=== PATIENT | female | born 1935 | race Caucasian/White ===

== ENCOUNTER 2019-04-19 10:42 | Inpatient (IN) | payer MEDICARE ==
--- NOTE | 2019-04-19 11:01 | CT ---
Exam: Head CT without contrast HISTORY: Level 2 stroke. Dysphagia and achalasia since last night. Confusion starting this morning. COMPARISON: none FINDINGS: Hemorrhage: No intraparenchymal hemorrhage or extra-axial hematoma. Brain parenchyma: Malacic changes involving the medial left occipital lobe. Otherwise, cortical branch- white matter differentiation is preserved. No mass effect or midline shift. Basilar cisterns are patent. Ventricular system: Ventricles and sulci are patent and symmetric. Calvarium: Intact. Sinuses and mastoid air cells: Adequate aeration. IMPRESSION: No acute intracranial process. Results study discussed with Dr. Saul 04/19/2019 at 10:58 AM Code CR
[2019-04-19 11:33] LABS: #Eosinphils 0.2 thou/uL (0.0-0.7); #Lymphocytes 1.2 thou/uL (1.20-3.40); #Monocytes 0.9 thou/uL (0.11-0.59); #Neutrophils 8.7 thou/uL (1.40-6.50); %Basophils 0.3 % (0.0-1.0); %Eosinophils 1.8 % (0.0-10.0); %Lymphocytes 10.4 % (21.0-51.0); %Monocytes 8.1 % (0.0-10.0); %Neutrophils 79.4 % (42.0-75.0); Hemoglobin 13.4 g/dL (12.0-16.0); Mean Corpuscular Hemoglobin 30.3 pg (27.0-31.0); Mean Corpuscular Volume 97.7 fL (78.0-98.0); Mean Platelet Volume 8.4 fL (7.4-10.4); Platelet Count 228 thou/uL (130-400); RBC Distribution Width 15.6 % (11.5-14.5); Red Blood Cell (RBC) Count 4.42 mill/uL (4.20-5.40)
[2019-04-19] MEDS ORDERED: Aspirin Chewable 81 MG TAB ONE ×2 (11:53→11:56)
[2019-04-19 12:01] LABS: Bilirubin Negative (Negative); Blood, Urine Negative (Negative); Clarity Clear (Clear); Glucose, Urine (Dipstick) Normal (Negative); Leukocyte Negative Leu/uL (Negative); Nitrite Negative (Negative); Protein, Urine (Dipstick) Negative (Neg-Trace); Urobilinogen Normal mg/dL (Less than 2)
[2019-04-19 12:09] LABS: ALT (SGPT) 16 U/L (8-55); AST (SGOT) 16 U/L (5-34); Albumin 4.1 g/dL (3.4-4.8); Alkaline Phosphatase 158 U/L (40-110); Anion Gap 17 mmol/L (10-20); BUN (Urea Nitrogen) 11 mg/dL (9.8-20.1); Bilirubin, Total 2.1 mg/dL (0.2-1.2); Calc. Creatinine Clearance 0 mL/min (70-130); Calcium 10.2 mg/dL (7.8-10.44); Carbon Dioxide 29 mmol/L (23-31); Chloride 97 mmol/L (98-107); Estimated GFR-MDRD 70; Globulin 3.4 g/dL (2.4-3.5); Glucose 146 mg/dL (83-110); Potassium 3.6 mmol/L (3.5-5.1); Protein, Total 7.5 g/dL (6.0-8.3); Sodium 139 mmol/L (136-145)
[2019-04-19] MEDS ORDERED: ISOVUE-370 76%-LOCM 1 ML ONE (12:22)
[2019-04-19] MEDS ORDERED: Ondansetron ODT 4 MG TAB SL PRN (15:13)
[2019-04-19] MEDS ORDERED: Acetaminophen 325 MG TAB PO PRN ×2 (15:13→15:31)
[2019-04-19] MEDS ORDERED: Ondansetron PF 4 MG/2 ML Vial IVP PRN (15:13)
[2019-04-19 15:14] LABS: Troponin I 0.011 ng/mL (< 0.028)
[2019-04-19 15:29] VITALS: BMI 28.2
[2019-04-19] MEDS ORDERED: hydrALAZINE 20 MG/ML VIAL SLOW IVP PRN (15:31)
[2019-04-19] MEDS ORDERED: Calcium Carbonate 500 MG ChewTAB PO PRN (15:31)
[2019-04-19] MEDS ORDERED: Ipratropium Bromide 2.5 ml Neb NEB PRN (15:58)
--- NOTE | 2019-04-19 17:07 | PDOC.FPRHP ---
- History of Present Illness Chief Complaint: Slurred Speech History of Present Illness: 83yo CF with h/o HTN, COPD, Afib, CHF, hypothyroidism, breast ca, DC in 2016, previous CVA, and RA who presented with slurred speech and generalized confusion. Pt was last seen normal at 1700 on 04/18 by daughter. Sometime between 1700 and 1999 pt states she began to feel that it was "difficult to think." Spoke with granddaughter on the phone at 2000 and she noted slurred speech and difficulty with speaking. Went to bed and granddaughter checked on her this morning at 0900 and speech and confusion had worsened. Also noted Right facial droop. Called EMS and was transported to [facility]. Family states that speech as improved. Right facial droop resolved. Never experienced any focal weakness, numbness, LOC, GLASGOW's, CP, SOB, n/v, fever/chills , or palpitations. 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 PCP: Dr. Silveira in [place] ED Course: Given ASA. CT w/o negative. CTA head and neck demonstrated thombus in L M2 branch of MCA. Neurosurgery called and recommended medical management, no surgical intervention. Family medicine team called for admission. - Allergies/Adverse Reactions Allergies Allergy/AdvReac Type Severity Reaction Status Date / Time exemestane Allergy Verified 04/19/19 15:13 tamoxifen Allergy Verified 04/19/19 15:13 temazepam Allergy Verified 04/19/19 15:13 tramadol Allergy Verified 04/19/19 15:13 - Home Medications Medication Instructions Recorded Confirmed Type Albuterol Sulfate [Albuterol 1 vial NEB TID 04/19/19 04/19/19 History Sulfate Neb] Ascorbic Acid [Vitamin C] 1,000 mg PO DAILY 04/19/19 04/19/19 History Aspirin [Ecotrin] 81 mg PO HS 04/19/19 04/19/19 History Atorvastatin Calcium [Lipitor] 40 mg PO HS 04/19/19 04/19/19 History Cyanocobalamin (Vitamin B-12) 2,500 mcg PO DAILY 04/19/19 04/19/19 History [Vitamin B12] Dexlansoprazole [Dexilant] 60 mg PO DAILY 04/19/19 04/19/19 History Digoxin [Lanoxin] 0.125 mg PO DAILY 04/19/19 04/19/19 History Donepezil HCl [Aricept] 5 mg PO HS 04/19/19 04/19/19 History Fluticasone Propionate [Flonase 1 spray EA NARE DAILY 04/19/19 04/19/19 History Nasal [place]] Fluticasone/Vilanterol [Breo 1 each IH DAILY 04/19/19 04/19/19 History Ellipta 200-25 Mcg INH] Folic Acid 0.8 mg PO HS 04/19/19 04/19/19 History Furosemide [Lasix] 20 mg PO BID 04/19/19 04/19/19 History Levothyroxine Sodium [Synthroid] 25 mcg PO DAILY 04/19/19 04/19/19 History Magnesium Oxide [Magnesium] 400 mg PO HS 04/19/19 04/19/19 History Methotrexate Sodium [Methotrexate] 15 mg PO Q7D 04/19/19 04/19/19 History Metoprolol Tartrate 50 mg PO BID 04/19/19 04/19/19 History Montelukast Sodium [Singulair] 10 mg PO HS 04/19/19 04/19/19 History Potassium Chloride 10 meq PO BID 04/19/19 04/19/19 History Tiotropium [place] [Spiriva 2 inh IH DAILY 04/19/19 04/19/19 History Respimat] Ubidecarenone [Co Q-10] 200 mg PO DAILY 04/19/19 04/19/19 History - History PMHx: HTN, 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 Able to complete ADLS and AIDLS. Previous heavy smoker, quit 30 years ago. No illicits or EtOH. - Review of Systems General: denies: fever/chills, weight/appetite/sleep changes, night sweats Eyes: reports: vision changes (chronic right hemianopsia). denies: eye pain ENT: denies: nasal congestion, rhinorrhea Respiratory: denies: cough, congestion, shortness of breath Cardiovascular: denies: chest pain, palpitation, edema, paroxysmal nocturnal dyspnea, orthopnea Gastrointestinal: denies: nausea, vomiting, diarrhea, constipation, abdominal pain Genitourinary: denies: incontinence, dysuria Skin: denies: rashes Musculoskeletal: denies: pain, tenderness, stiffness, swelling Neurological: reports: other (slight slurred speech). denies: numbness, syncope , seizure, weakness Psychological: denies: anxiety, depression - Vital signs BP: 172/68 HR: 67 RR: 18 Tmax: 98.7 Pox: 95% on RA Wt: 67kg - Physical Exam Constitutional: NAD, awake, alert and oriented, well developed HEENT: PERRLA, EOMI, conjunctiva clear, grossly normal hearing, MMM, oropharynx clear -HEENT: Right hemianopsia Neck: supple, trachea midline Chest: no-tender to palpation Heart: normal S1/S2, no murmurs/rubs/gallops, pulses present, no edema -Heart: Irregularly irregular HR, normal rate Lungs: CTAB, no respiratory distress, no wheezing -Lungs: Poor aeration throughout, quite Breath sounds Abdomen: soft, non-tender, bowel sounds present, no masses/distention Musculoskeletal: normal structure, normal tone -Musculoskeletal: 5/5 strength throughout Neurological: no focal deficit, CN II-XII intact, normal sensation -Neurological: no dysmetria or dysdiadokinesia or pronator drift. Minimal difficulty word finding. Skin: no rash/lesions Psychiatric: normal mood and affect, good judgment and insight, intact recent and remote memory FMR H&P: Results - Labs Result Diagrams: 04/20/19 03:34 04/20/19 03:34 Lab results: WBC 11.0 thou/uL (4.8-10.8) H 04/19/19 11:02 Hgb 13.4 g/dL (12.0-16.0) 04/19/19 11:02 Hct 43.2 % (36.0-47.0) 04/19/19 11:02 MCV 97.7 fL (78.0-98.0) 04/19/19 11:02 Plt Count 228 thou/uL (130-400) 04/19/19 11:02 Neutrophils % 79.4 % (42.0-75.0) H 04/19/19 11:02 Sodium 139 mmol/L (136-145) 04/19/19 11:02 Potassium 3.6 mmol/L (3.5-5.1) 04/19/19 11:02 Chloride 97 mmol/L (98-107) L 04/19/19 11:02 Carbon Dioxide 29 mmol/L (23-31) 04/19/19 11:02 BUN 11 mg/dL (9.8-20.1) 04/19/19 11:02 Creatinine 0.79 mg/dL (0.6-1.1) 04/19/19 11:02 Glucose 146 mg/dL (83-110) H 04/19/19 11:02 Calcium 10.2 mg/dL (7.8-10.44) 04/19/19 11:02 Total Bilirubin 2.1 mg/dL (0.2-1.2) H 04/19/19 11:02 AST 16 U/L (5-34) 04/19/19 11:02 ALT 16 U/L (8-55) 04/19/19 11:02 Alkaline Phosphatase 158 U/L (40-110) H 04/19/19 11:02 Serum Total Protein 7.5 g/dL (6.0-8.3) 04/19/19 11:02 Albumin 4.1 g/dL (3.4-4.8) 04/19/19 11:02 Urine Ketones Negative mg/dL (Negative) 04/19/19 10:55 Urine Blood Negative (Negative) 04/19/19 10:55 Urine Nitrite Negative (Negative) 04/19/19 10:55 Ur Leukocyte Esterase Negative Jacqui/uL (Negative) 04/19/19 10:55 - EKG Interpretation EKG: Afib, rate controlled. Normal axis, Good R wave progression. No ST or T wave changes. - Radiology Interpretation CT scan - head Status: report reviewed by me (Rubenbus in L M2 branch of MCA) FMR H&P: A/P - Problem List (1) CVA (cerebral vascular accident) Current Visit: Yes Status: Acute Code(s): I63.9 - CEREBRAL INFARCTION, UNSPECIFIED Qualifiers: CVA mechanism: thrombosis Precerebral and cerebral artery: middle cerebral artery (2) HTN (hypertension) Current Visit: Yes Status: Chronic Code(s): I10 - ESSENTIAL (PRIMARY) HYPERTENSION Qualifiers: Hypertension type: essential hypertension Qualified Code(s): I10 - Essential (primary) hypertension (3) COPD (chronic obstructive pulmonary disease) Current Visit: Yes Status: Chronic Qualifiers: COPD type: emphysema (4) Afib Current Visit: Yes Status: Chronic Code(s): I48.91 - UNSPECIFIED ATRIAL FIBRILLATION Qualifiers: Atrial fibrillation type: longstanding persistent Qualified Code(s): I48.11 - Longstanding persistent atrial fibrillation (5) Hypothyroidism Current Visit: Yes Status: Chronic Code(s): E03.9 - HYPOTHYROIDISM, UNSPECIFIED (6) CHF (congestive heart failure) Current Visit: Yes Status: Chronic Code(s): I50.9 - HEART FAILURE, UNSPECIFIED (7) Breast cancer Current Visit: Yes Status: Resolved Qualifiers: Patient sex: female Laterality: right (8) CAD (coronary artery disease) Current Visit: Yes Status: Chronic Code(s): I25.10 - ATHSCL HEART DISEASE OF [place] CORONARY ARTERY W/O ANG PCTRS Qualifiers: Coronary Disease-Associated Artery/Lesion type: [place] artery [place] vs. transplanted heart: [place] heart (9) Rheumatoid arthritis Current Visit: Yes Status: Chronic Code(s): M06.9 - RHEUMATOID ARTHRITIS, UNSPECIFIED - Plan 83yo CF with h/o CAD, previous CVA, COPD, HTN, Afib presents with slurred speech and R facial droop found to have CVA on CTA. #CVA of Left MCA - Slurred speech and R-sided facial droop - facial droop resolved, speech improving - CTA - thrombus of M2 branch of Left MCA - MRI not needed at this time as CTA demonstrated thrombus as above - Neurosurgery consulted from ED, no surgical intervention, medical management - Neurology consulted, apprec recs - TSH, A1C, Fasting lipid ordered - PT/OT/Speech - NIH and stroke checks - Permissive HTN of <220/110 for 48hours - ASA, recommended plavix for dual antiplatelet due to ABCD2 score of 5, however R/B/A discussed and pt declines plavix - cont lipitor - h/o previous CVA with right hemianopsia #Afib - rate controlled on home dig and metoprolol. VSS. - no anticoagulation has pt has had GI bleeds in past - CHADSVASC score of 8, HASBLED of 5 - Will check dig lv - cont home meds and monitor on tele - TTE Ordered - Cards consulted for HAMZAH in AM as concern for left atrial thrombus leading to CVA #COPD with emphysema - on 2L at home, no exacerbation - cont home O2, spiriva, breo, and albuterol nebs. Will monitor #CHF/CAD - cont home lasix and KCl, asa - no acute exacerbation - h/o stents and DC in 2016 - TTE and HAMZAH ordered - trop 0.017, will trend #Hypothyroidism - cont home levothyroxine, check TSH #RA - cont home MTX q7d #GERD - cont home dexilant VTE: SCDs - high bleed risk with previous GI bleeds on anticoagulation, has been off anticoagulation for about 1 year Diet: HH, NPO at midnight for possible HAMZAH IVF: SL Code: Full PCP: Dr. Silveira in [place], [place] Disposition/LOS: Admit to stroke for new CVA. Consulted neurology. Cards consulted for afib with concern for possible atrial thrombus. Echo ordered. Routine post-stroke care. Anticipate hospitalization >48hours. FMR H&P: Upper Level - Pertinent history 83 yo F here with complaint change in mental status and R sided facial droop that started at apprx 2000 yesterday. She has a hx of afib, CHF, COPD, and previous CVA. Upon arrival to the ER stroke alert was initiated which found an L M2 MCA thrombus was found on CTA. Neurosurg was consulted from ER who determined that she was not a candidate for thrombectomy. Pt was out of window for TPA. At the time of H&P, pt states that her symptoms have largely improved and that she is back to her baseline. Her previous CVA left her with a loss of peripheral vision on the R bilaterally. PMHx CHF COPD Afib Hx of CVA CAD HTN Hypothyroid Surgical hx Appendectomy b/l cataract R mastectomy IVC filter Social Hx 20 pack year hx of smoking, none in 30 years Denies etoh or drugs - Pertinent findings See graduate intern note for full ROS, PE, vitals, and labs ROS General Complains of fever and chills CV Denies CP, palpitation, or chronic peripheral edema Resp Denies SOB cough GI Denies of n/v/d or abdominal pain denies increased frequency or dysuria Neuro Complains of confusion or R sided droop now resolved PE General A&O x4, NAD HEENT NCAT CV RRR, no murmur Resp CTA, no respiratory distress Abd No TTP, no distension, soft, no guarding Extremities no edema, equal pedal pulses Neuro Loss of peripheral visual chambers on R b/l, otherwise no focal deficits, no weakness, CN II-XII intact - Plan Date/Time: 04/19/19 1702 I, Laron Hinds, DO, have evaluated this patient and agree with findings/plan as outlined by graduate intern resident. Pertinent changes/additions are listed here. 1.Acute L MCA CVA -Medical management only at this time. Continue ASA. Pt declines Plavix -Admit to stroke -Currently in afib, pt is not taking anticoagulation making atrial appendage as source of thrombus a possibility. Will discuss HAMZAH with cards -Permissive HTN -Continue home statin -Consult neurology 2.Afib -Rate controlled, will discuss anticoagulation risks and benefits 3.CHF -No signs of overload at this time -Home meds 4.COPD -No acute exacerbation -Home meds 5.Hyperbilirubinemia -Unclear etiology, trend in am PPx SCD Diet HH Code Full Addendum - Attending - Attending Attestation Date/Time: 04/20/19 0810 I personally evaluated the patient and discussed the management with Dr. Bledsoe and Guzman. I agree with the History, Examination, Assessment and Plan documented above with any addition or exceptions noted below.
[2019-04-19 17:12] LABS: INR-International Normal Ratio 1.1; PTT 28.4 SEC (22.9-36.1); Prothrombin Time 14.5 SEC (12.0-14.7)
--- NOTE | 2019-04-19 17:17 | PDOC.FM ---
- Objective Vital Signs & Weight: Vital Signs (12 hours) Temp Pulse Resp BP Pulse Ox 04/19/19 15:00 98.0 F 56 L 23 H 123/96 H 99 Weight Weight 72.257 kg Result Diagrams: 04/19/19 11:02 04/19/19 11:02 Addendum - Attending - Attending Attestation Date/Time: 04/19/19 4093 I personally evaluated the patient and discussed the management with Dr. Bledsoe. I agree with the History, Examination, Assessment and Plan as discussed. H&P pending. I do not think an MRI is necessary as the CTA confirmed diagnosis. Pt is declining plavix therapy. ASA and statin continued.
[2019-04-19 17:31] LABS: Troponin I Less than 0.010 ng/mL (< 0.028)
[2019-04-19 17:32] LABS: Hemoglobin A1c 7.4 % (4.0-6.0)
[2019-04-19 17:45] LABS: Digoxin 0.84 ng/mL (0.8-2.0)
--- NOTE | 2019-04-19 17:49 | CON ---
DATE OF CONSULTATION: 04/19/2019 REASON FOR CONSULTATION: Atrial fibrillation and recent stroke. HISTORY OF PRESENT ILLNESS: Ms. Oleary is a very pleasant 83-year-old woman, who recently suffered a stroke. She states she has had chronic atrial fibrillation in the past. She follows with a hospital receiving clerk in [place], [place]. She previously was on Eliquis and had a significant GI bleed requiring transfusion. She states this occurred shortly after starting the Eliquis. Details to GI consultation are not known. She recently presented with CVA, but appears to be improving. PAST MEDICAL HISTORY: Chronic atrial fibrillation, hypertension, COPD, hypothyroidism, breast cancer, TIA, shingles, emphysema, appendectomy, mastectomy, vena cava filter, left upper arm fracture. ALLERGIES: INCLUDE TAMOXIFEN, TRAMADOL, TEMAZEPAM. HOME MEDICATIONS: Include, 1. Aspirin. 2. Atorvastatin. 3. CoQ10. 4. Dexilant. 5. Digoxin. 6. Flonase. 7. Lasix. 8. Levothyroxine. 9. Magnesium. 10. Methotrexate. 11. Metoprolol. REVIEW OF SYSTEMS: A 10-point review of systems is reviewed as above, otherwise negative. PHYSICAL EXAMINATION: GENERAL: Patient is a pleasant woman who is in no acute distress. The patient appears their stated age. VITAL SIGNS: Blood pressure 123/96, pulse 56, temperature 98. NEUROLOGIC: Dysarthria. HEENT: Sclerae without icterus. Mouth has moist mucous membranes with normal pallor. NECK: No JVD. Carotid upstroke brisk. No bruits bilaterally. LUNGS: Clear to auscultation with unlabored respirations. BACK: No scoliosis or kyphosis. CARDIAC: Irregularly irregular. ABDOMEN: Soft, nontender, nondistended. No peritoneal signs present. No hepatosplenomegaly. No abnormal striae. EXTREMITIES: 2+ femoral and 2+ dorsalis pedis pulses. No cyanosis, clubbing, or edema. SKIN: No gross abnormalities. PERTINENT LABORATORY DATA: Hemoglobin 13.4. Creatinine 0.7. Troponin negative. EKG shows atrial fibrillation with nonspecific ST-T wave changes. IMPRESSION: 1. Recent stroke. 2. Atrial fibrillation. RECOMMENDATIONS: At this point, recommend adding anticoagulation therapy once she is cleared by Neurology. I have discussed risks and benefits of anticoagulation therapy. At this point, the patient is not interested in proceeding given her risk of bleeding. She does understand the risks of recurrent stroke. The plan would be anticoagulation therapy for short time and have her seen and evaluated by EP for possible Watchman device or a Lariat device. She would like to have further discussion with her family. At this point, we will treat with aspirin only at the patient's request. We will also review her echo. Job ID: [id number]
[2019-04-19] MEDS: Albuterol Sulfate 2.5 mg/3 ml Neb NEB SCH (19:55)
[2019-04-19] MEDS: Folic Acid 1 MG TAB PO SCH (21:12)
[2019-04-19] MEDS: Metoprolol Tartrate 50 MG TAB PO SCH (21:12)
[2019-04-19] MEDS: Montelukast Sodium 10 mg Tablet PO SCH (21:13)
[2019-04-19] MEDS: Potassium Chloride 10 MEQ TAB PO SCH (21:13)
[2019-04-19] MEDS: Furosemide 20 MG TAB PO SCH (21:13)
[2019-04-19] MEDS: Magnesium Oxide 400 MG TAB PO SCH (21:13)
[2019-04-19] MEDS: Donepezil HCl 5 MG TAB PO SCH (21:13)
[2019-04-19] MEDS: Atorvastatin Calcium 40 MG TAB PO SCH (21:19)
[2019-04-20 03:55] LABS: #Eosinphils 0.2 thou/uL (0.0-0.7); #Lymphocytes 0.9 thou/uL (1.20-3.40); #Monocytes 0.8 thou/uL (0.11-0.59); #Neutrophils 5.8 thou/uL (1.40-6.50); %Basophils 0.5 % (0.0-1.0); %Eosinophils 2.6 % (0.0-10.0); %Lymphocytes 12.2 % (21.0-51.0); %Monocytes 10.1 % (0.0-10.0); %Neutrophils 74.6 % (42.0-75.0); Hemoglobin 12.4 g/dL (12.0-16.0); Mean Corpuscular HGB CONC 33.4 g/dL (32.0-36.0); Mean Corpuscular Hemoglobin 32.5 pg (27.0-31.0); Mean Corpuscular Volume 97.5 fL (78.0-98.0); Mean Platelet Volume 8.3 fL (7.4-10.4); Platelet Count 195 thou/uL (130-400); RBC Distribution Width 15.3 % (11.5-14.5); White Blood Cell (WBC) Count 7.7 thou/uL (4.8-10.8)
[2019-04-20 04:14] LABS: ALT (SGPT) 15 U/L (8-55); AST (SGOT) 16 U/L (5-34); Albumin 3.6 g/dL (3.4-4.8); Alkaline Phosphatase 130 U/L (40-110); Anion Gap 8 mmol/L (10-20); BUN (Urea Nitrogen) 16 mg/dL (9.8-20.1); Bilirubin, Total 2.1 mg/dL (0.2-1.2); Calc. Creatinine Clearance 62 mL/min (70-130); Carbon Dioxide 37 mmol/L (23-31); Cardiac Risk 2.5 (Less than 4.5); Chloride 98 mmol/L (98-107); Cholesterol 120 mg/dl (< 200 Desired); Estimated GFR-MDRD 69; Globulin 2.8 g/dL (2.4-3.5); Glucose 135 mg/dL (83-110); HDL Cholesterol 48 mg/dL (>60 Neg Risk); LDL Cholesterol, Calculated 57 mg/dL; Protein, Total 6.4 g/dL (6.0-8.3); Sodium 139 mmol/L (136-145); Triglycerides 73 mg/dL (Less than 150)
[2019-04-20] MEDS: Levothyroxine Sodium 25 MCG TAB PO SCH (05:42)
[2019-04-20] MEDS: Albuterol Sulfate 2.5 mg/3 ml Neb NEB SCH ×3 (06:37→19:25)
[2019-04-20] MEDS: Mometasone/Formoterol 120 PUFF INHALER INH SCH ×2 (06:38→19:25)
--- NOTE | 2019-04-20 08:34 | PDOC.FM ---
- Subjective Subjective: Pt doing well this morning, no acute events overnight. Confusion and slurred speech have essential resolved. Denies any CP, SOB, n/v, lightheadedness/ dizziness, new focal neurologic deficit, palpitations, fever/chills, new vision changes, abdominal pain. Spoke with cardiology yesterday who recommended anticoagulation. Pt still states she would decline any anticoagulation at this time until she can speak with her family and make a decision. R/B/A discussed at length including risk of DVT, PE, and further strokes. Continues to decline any anticoag at this time. - Objective MAR Reviewed: Yes Vital Signs & Weight: Vital Signs (12 hours) Temp Pulse Resp BP Pulse Ox 04/20/19 07:23 97.8 F 70 15 161/69 H 97 04/20/19 06:37 71 16 98 04/20/19 04:34 97.6 F 66 16 150/66 H 96 04/19/19 23:59 97.9 F 59 L 16 137/64 95 Weight Weight 72.575 kg I&O: 04/19/19 04/20/19 04/21/19 06:59 06:59 06:59 Intake Total 590 Balance 590 Result Diagrams: 04/20/19 03:34 04/20/19 03:34 EKG Reviewed by me: Yes (Rated controlled afib 60s-80s.) Phys Exam - Physical Examination Constitutional: NAD (resting comfortably) HEENT: PERRLA (EOM intact), moist MMs Neck: supple Respiratory: no wheezing, no rales, no rhonchi, clear to auscultation bilateral Cardiovascular: no significant murmur, no rub, irregular (irregular, rate controlled) Gastrointestinal: soft, non-tender, no distention, positive bowel sounds Musculoskeletal: no edema, pulses present Neurological: non-focal (CN II-XII intact. No new visual deficits. Speech improved.), normal sensation, moves all 4 limbs Psychiatric: normal affect, A&O x 3 Dx/Plan (1) CVA (cerebral vascular accident) Code(s): I63.9 - CEREBRAL INFARCTION, UNSPECIFIED Status: Acute Qualifiers: CVA mechanism: thrombosis Precerebral and cerebral artery: middle cerebral artery (2) HTN (hypertension) Code(s): I10 - ESSENTIAL (PRIMARY) HYPERTENSION Status: Chronic Qualifiers: Hypertension type: essential hypertension Qualified Code(s): I10 - Essential (primary) hypertension (3) COPD (chronic obstructive pulmonary disease) Status: Chronic Qualifiers: COPD type: emphysema (4) Afib Code(s): I48.91 - UNSPECIFIED ATRIAL FIBRILLATION Status: Chronic Qualifiers: Atrial fibrillation type: longstanding persistent Qualified Code(s): I48.11 - Longstanding persistent atrial fibrillation (5) Hypothyroidism Code(s): E03.9 - HYPOTHYROIDISM, UNSPECIFIED Status: Chronic (6) CHF (congestive heart failure) Code(s): I50.9 - HEART FAILURE, UNSPECIFIED Status: Chronic (7) Breast cancer Status: Resolved Qualifiers: Patient sex: female Laterality: right (8) CAD (coronary artery disease) Code(s): I25.10 - ATHSCL HEART DISEASE OF [place] CORONARY ARTERY W/O ANG PCTRS Status: Chronic Qualifiers: Coronary Disease-Associated Artery/Lesion type: [place] artery [place] vs. transplanted heart: [place] heart (9) Rheumatoid arthritis Code(s): M06.9 - RHEUMATOID ARTHRITIS, UNSPECIFIED Status: Chronic - Plan Plan: 83yo CF with h/o CAD, previous CVA, COPD, HTN, Afib, DMII presents with slurred speech and R facial droop found to have CVA on CTA. #CVA of Left MCA - Slurred speech and R-sided facial droop, not tPA candidate - facial droop resolved, confusion and speech deficits resolved, no new sxs - CTA - thrombus of M2 branch of Left MCA - MRI not needed at this time as CTA demonstrated thrombus as above - Neurosurgery consulted from ED, no surgical intervention, medical management - Neurology consulted, apprec recs - TSH, Fasting Lipid WNL. A1C 7.4 - PT/OT/Speech - NIH and stroke checks - Permissive HTN of <220/110 for first 48 hours of admission - ASA, recommended plavix for dual antiplatelet due to ABCD2 score of 5, however R/B/A discussed and pt declines plavix - cont lipitor - h/o previous CVA with right hemianopsia #Afib - rate controlled on home dig and metoprolol. VSS. No acute events on tele, still rate-controlled afib, asx. Cont to monitor on tele. - CHADSVASC score of 8, HASBLED of 5 - Dig lv 0.84 - TTE Ordered - Cards consulted, Dr. Cano, for HAMZAH in AM as concern for left atrial thrombus leading to CVA. Recommended anticoagulation and possible further EP intervention, apprec recs - R/B/A of anticoagulation discussed with pt. States she declines any anticoagulation at this time 2/2 concern for bleeding risk. Discussed at length R/B/A including risk of stroke, PE, DVT. States she will speak with family today and come to further decision. #COPD with emphysema - on 2L at home, no exacerbation - cont home O2, spiriva, breo, and albuterol nebs. Will monitor #CHF/CAD - cont home lasix and KCl, asa - no acute exacerbation - h/o stents and NH in 2016 - TTE and HAMZAH ordered - trops neg #Hypothyroidism - cont home levothyroxine, TSH 1.4 #RA - cont home MTX q7d #GERD - cont home dexilant #DMII - newly diagnosed, A1C 7.4, no medications at this time 2/2 age and A1C goal <8 VTE: SCDs - high bleed risk with previous GI bleeds on anticoagulation, has been off anticoagulation for about 1 year, Recommend anticoagulation. R/B/A discussed and pt declines anticoag at this time Diet: NPO for possible HAMZAH, HH after IVF: SL Code: Full PCP: Dr. Silveira in [facility], [place] Disposition/LOS: Admit to stroke for new CVA. Consulted neurology. Cards consulted for afib with concern for possible atrial thrombus and afib. Echo ordered. Routine post- stroke care. Anticipate hospitalization >48hours.
[2019-04-20] MEDS: Ubidecarenone 50 MG CAP PO SCH (09:57)
[2019-04-20] MEDS: Ascorbic Acid 500 mg Chewable Tablet PO SCH (09:58)
[2019-04-20] MEDS: Potassium Chloride 10 MEQ TAB PO SCH ×2 (09:58→21:36)
[2019-04-20] MEDS: Furosemide 20 MG TAB PO SCH ×2 (09:58→21:35)
[2019-04-20] MEDS: Aspirin 81 mg Enteric Coated Tablet PO SCH (09:58)
[2019-04-20] MEDS: Digoxin 0.125 MG TAB PO SCH (09:58)
[2019-04-20] MEDS: Metoprolol Tartrate 50 MG TAB PO SCH ×2 (09:59→21:36)
[2019-04-20] MEDS: Fluticasone Propionate Nasal Spray 16 gm Bottle NASAL SCH (09:59)
--- NOTE | 2019-04-20 10:18 | CT ---
INDICATION: Dysphagia. Patient. Confusion. COMPARISON: None FINDINGS: CTA OF THE HEAD WITH AND WITHOUT CONTRAST: POSTCONTRAST CT OF BRAIN: Pathologic enhancement: No pathologic enhancement the brain. Postcontrast soft tissue neck CT: Sinuses: Adequate aeration of the paranasal sinuses and mastoid air cells.. Orbits: Bilateral ocular lens implants are appropriately located. Both globes are intact. Retrobulbar fat is preserved. Symmetric attenuation the optic nerves and ocular rectus muscles. Salivary glands:Unremarkable Thyroid gland: Unremarkable Lymph nodes: No evidence of lymphadenopathy by size criteria. Paraspinal muscles: Symmetric attenuation of the sternocleidomastoid muscles. Appropriate attenuation of the paraspinal muscles. Cervical spine:Vertebral body height is maintained. No fracture. Grade 1 anterolisthesis of C2 to upo n C3. Severe loss of disc space height at C3-C4, C4-C5 and C5-C6. Varying degrees of central canal stenosis and neural foraminal narrowing due to degenerative change. Limited evaluation due to techniq ue. Upper mediastinum and lung apices: Upper normal precarinal lymph node measuring 1.0 x 0.9 cm. Chronic changes in the lung apices. CTA OF THE BRAIN: Intracranial internal carotid arteries:Symmetric enhancement and luminal diameter the intracranial in ternal carotid arteries. Atherosclerosis involving bilateral cavernous segments Anterior circulation: Symmetric enhancement and luminal diameter the A1 and M1 segments. Bilateral sm all A2 segments and right proximal MCA branches have appropriate enhancement and luminal diameter. There is abrupt termination of a proximal left M2 segment (coronal image 37, series 300; axial image 193, series 2) Intracranial vertebral arteries: Intracranial vertebral arteries are patent. Limited evaluation of th e PICA artery origins. Posterior circulation: Both vertebral arteries supply a normal appearing basilar artery. The left and right P1 segments have appropriate enhancement and luminal diameter. CTA OF THE NECK WITH CONTRAST: Right carotid artery: The innominate artery origin demonstrates mild atherosclerotic disease. No sign ificant stenosis. The right common carotid artery, carotid bifurcation and internal carotid artery of appropriate enhancement and luminal diameter. No significant stenosis based upon NASCET criteria. There is calcified and noncalcified plaque in the right carotid bifurcation and proximal internal carotid artery. There is also atherosclerosis at the origin of the right external carotid artery. The mid internal carotid artery is tortuous. Left carotid: The left carotid artery origin has appropriate enhancement and luminal diameter. The le ft common carotid artery, carotid bifurcation and internal carted artery have appropriate enhancement and luminal diameter. No significant stenosis based upon NASCET criteria. Subclavian arteries:Patent Vertebral arteries:Cervical vertebral arteries are patent throughout the course of the neck. Right ve rtebral artery is dominant.. IMPRESSION: 1. Thrombosis involving a proximal left M2 segment. 2. Additional Findings as above. 3. Results study discussed with Dr. Saul 04/11/2019 at 11:38 AM Code CR Transcribed Date/Time: 04/20/2019 10:18 AM
--- NOTE | 2019-04-20 10:26 | PRG ---
DATE OF SERVICE: 04/20/2019 Ms. Oleary is a very pleasant 83-year-old lady, who was admitted with a TIA/stroke. 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 We were unable to perform MRI to confirm whether this was in fact a CVA. In the event, she will be treated as if she has had a stroke. She is also following up with the chargeback analyst on anticoagulation for her atrial fibrillation. She will likely be discharged later this afternoon after consulting with him. Job ID: [id number]
--- NOTE | 2019-04-20 11:01 | PRG ---
DATE OF SERVICE: 04/20/2019 Ms. Oleary is an 83-year-old lady, who was admitted with a possible TIA/stroke. She was found to have a thrombus in the M2 branch of the MCA. Neurosurgery was called, but elected for no surgical intervention and recommended medical management. She is currently on a low-dose aspirin and atorvastatin. She also has atrial fibrillation and a decision will be made regarding her use of an anticoagulant. This will await the findings of a TTE. Job ID: [id number]
[2019-04-20] MEDS: Cyanocobalamin (Vitamin B-12) 1,000 MCG TAB PO SCH (11:21)
--- NOTE | 2019-04-20 13:33 | PRG ---
DATE OF SERVICE: 04/20/2019 SUBJECTIVE: Ms. Oleary is doing much better. Her speech is improved. No current complaints. OBJECTIVE: VITAL SIGNS: Blood pressure 147/76, pulse 70, temperature 98. GENERAL: Patient is a pleasant 83-year-old who is in no acute distress. The patient appears their stated age. NEUROLOGIC: The patient is alert and oriented x3 with no focal neurologic deficits. HEENT: Sclerae without icterus. Mouth has moist mucous membranes with normal pallor. NECK: No JVD. Carotid upstroke brisk. No bruits bilaterally. LUNGS: Clear to auscultation with unlabored respirations. BACK: No scoliosis or kyphosis. CARDIAC: Regular rate and rhythm with normal S1 and S2. No S3 or S4 noted. No significant rubs, murmurs, thrills, or gallops noted throughout the precordium. PMI is not displaced. There is no parasternal heave. ABDOMEN: Soft, nontender, nondistended. No peritoneal signs present. No hepatosplenomegaly. No abnormal striae. EXTREMITIES: 2+ femoral and 2+ dorsalis pedis pulses. No cyanosis, clubbing, or edema. SKIN: No gross abnormalities. IMPRESSION: 1. Recent cerebrovascular accident, likely embolic. 2. Chronic atrial fibrillation. RECOMMENDATIONS: I had a discussion with Ms. Oleary about how to proceed. I did recommend anticoagulation therapy. She has had bleeding in the past. She is not willing to proceed with full-dose anticoagulation treatment. She would like to proceed with a half dose treatment. I did state there was no data behind half dose therapy, but may be better than aspirin alone, although no data to quantify it. She would like to proceed with half dose Eliquis 2.5 mg p.o. b.i.d. Once she is cleared from Neurology, would be okay from my standpoint. Echo is currently pending. At this point, she does not need a HAMZAH given that the etiology is likely embolic from underlying atrial fibrillation. Job ID: [id number]
--- NOTE | 2019-04-20 13:35 | MRI ---
MRI Brain WO Con: 04/20/2019 10:52 AM CLINICAL HISTORY: CVA. COMPARISON: 04/19/2019 FINDINGS: Extra axial spaces: Normal in size and morphology for the patient's age. Acute infarction: There are multiple foci of restricted diffusion of the left cerebral hemisphere, in volving a watershed distribution.There is a left occipital encephalomalacia. Ventricular system: Normal in size and morphology for the patient's age. Basal cisterns: Normal. Cerebral parenchyma: Microvascular ischemic changes. Midline shift: None. Cerebellum: Normal. Brainstem: Normal. Paranasal sinuses:Bilateral mastoid fluid, and minimal mucosal thickening of paranasal sinuses IMPRESSION:Acute watershed distribution of left cerebral hemisphere. This could relate to hypoperfusi on or embolic phenomenon.
--- NOTE | 2019-04-20 14:08 | CON ---
DATE OF CONSULTATION: CHIEF COMPLAINT: Stroke. HISTORY OF PRESENT ILLNESS: The patient and daughter gave me medical history. The patient has been having intermittent vision loss for several weeks now and it occurs on a daily basis. She also was unable to talk well yesterday and could not get the words out and daughter noticed right facial droop and brought her immediately to the hospital. The patient has no numbness or weakness. No loss of consciousness. No history of any dizziness. No vision loss, but intermittent symptoms continued and the patient is admitted here. She did have a silent stroke about 2 years ago when she was in the hospital. She is on aspirin 81 mg per day. PREVIOUS MEDICAL HISTORY: Hypertension, breast cancer in the past and remission for 5 years, COPD, atrial fibrillation, congestive heart failure, hypothyroidism, and previous CVA and rheumatoid arthritis. PAST SURGICAL HISTORY: The patient had mastectomy implant, repeat mastectomy and appendectomy as a teenager, cataract surgery, and placement of IVC filter. SOCIAL HISTORY: She smoked for 30 years and quit 30 years ago. FAMILY HISTORY: She has 2 sisters and one half brother. Her half brother from CVA. Mother lived to be 99, from natural causes. Father of leukemia at 45. The patient has grown adult children and they are all healthy. MEDICATIONS: At home, she takes aspirin 81 mg for stroke prophylaxis. ALLERGIES: SHE IS ALLERGIC TO EXEMESTANE, TAMOXIFEN, TEMAZEPAM, AND TRAMADOL. REVIEW OF SYSTEMS: PULMONARY: Negative for shortness of breath, but positive for COPD. GI: Negative for nausea, vomiting, or diarrhea. OPHTHALMOLOGIC: Positive for vision loss intermittently. DERMATOLOGIC: Negative for any skin rash. RHEUMATOLOGIC: Positive for arthritis. At the ER evaluation of her stroke, the patient was not given any tPA because she came to the hospital out of tPA window, and Neurosurgery was consulted and there was even though she had proximal left M2 clot, no intervention has been planned because of the timing of her presentation. LABORATORY DATA: Her lab workup: White count 7.7, hemoglobin 12.4, hematocrit 37, platelets 195. Chemistry; sodium 139, potassium 4, chloride 98, bicarb 37, BUN 16, creatinine 0.8, and glucose 135. Liver function and panel within normal limits, and digoxin level was within normal limits, and her CT angiogram with [place] showed thrombosis in the proximal left M2 segments and MRIs have been requested by me. CT of the head does not show any acute intracranial process. PHYSICAL EXAMINATION: VITAL SIGNS: Blood pressure 161/69, temperature 97.8, pulse 70, respiratory rate 15, and O2 sats 97%. GENERAL APPEARANCE: Well-built, well-nourished, elderly lady, who is comfortable. CHEST: Clear vesicular breathing. CARDIOVASCULAR: S1 and S2 heard. No murmurs. ABDOMEN: Soft. NEUROLOGIC: Higher intellectual functions normal. Orientation to time, place, and person and appropriate conversation. Cranial nerves 2 through 12 normal. Pupils 2 mm, reactive to light. No visual field deficit was noted. Normal extraocular movements. Normal sensation of face bilaterally. Tongue midline. No atrophy noted. Normal elevation of palate. Normal hearing to finger rub bilaterally. Motor exam; bulk normal, tone normal, strength 5/5 throughout. They could be slight subtle weakness in the right upper extremity at 5-/5 that was subject to interpretation by our nurse, and muscle groups are tested at deltoid, biceps, triceps, wrist extension and flexion, finger extension and flexion, iliopsoas, hamstrings, quadriceps, ankle dorsiflexion, plantar flexion. Deep tendon reflexes 1+ in the right knee jerk, absent in the left knee jerk, 2+ in upper extremities. Cerebellar and sensory were normal. IMPRESSION: The patient is an 83-year-old lady with left M1 segment clot, likely secondary to cardioembolic events since the CT of the [place] does not show any carotid artery disease and she does have risk factors for stroke including atrial fibrillation. The question is whether she will need to be on Eliquis or some other anticoagulant for her stroke. RECOMMENDATIONS: At this time: 1. Obtain MRI of the brain to see if there is any additional infarct, which was embolic in nature. 2. Consult Cardiology regarding atrial fibrillation and start her on Eliquis for stroke prophylaxis. I will see her as needed again. Job ID: [id number]
[2019-04-20] MEDS: Apixaban 2.5 MG TAB PO SCH (21:35)
[2019-04-20] MEDS: Atorvastatin Calcium 40 MG TAB PO SCH (21:35)
[2019-04-20] MEDS: Folic Acid 1 MG TAB PO SCH (21:35)
[2019-04-20] MEDS: Magnesium Oxide 400 MG TAB PO SCH (21:35)
[2019-04-20] MEDS: Donepezil HCl 5 MG TAB PO SCH (21:35)
[2019-04-20] MEDS: Montelukast Sodium 10 mg Tablet PO SCH (21:36)
[2019-04-21] MEDS: Levothyroxine Sodium 25 MCG TAB PO SCH (06:38)
[2019-04-21] MEDS: Mometasone/Formoterol 120 PUFF INHALER INH SCH (07:05)
[2019-04-21] MEDS: Albuterol Sulfate 2.5 mg/3 ml Neb NEB SCH (07:07)
--- NOTE | 2019-04-21 08:26 | PDOC.FM ---
- Subjective Subjective: Doing very well this morning, no acute events overnight. Slept well. Speech deficits completely resolved. No new focal neurologic deficits. Spoke with Cardiology yesterday, family and pt decided to start Eliquis half-dosing. Eager for discharge. Denies any Cp, SOB, fever/chills, n/v. Ambulating well. - Objective MAR Reviewed: Yes Vital Signs & Weight: Vital Signs (12 hours) Temp Pulse Resp BP Pulse Ox 04/21/19 07:52 97.6 F 62 20 159/69 H 100 04/21/19 07:07 80 14 04/21/19 03:34 98.4 F 62 18 141/63 H 99 04/20/19 23:36 98.5 F 73 20 150/73 H 97 04/20/19 20:35 98 Weight Weight 72.575 kg I&O: 04/20/19 04/21/19 04/22/19 06:59 06:59 06:59 Intake Total 590 710 Balance 590 710 Result Diagrams: 04/20/19 03:34 04/20/19 03:34 EKG Reviewed by me: Yes (Tele: Rate controlled afib) Phys Exam - Physical Examination Constitutional: NAD (resting comfortably in bed) HEENT: moist MMs Neck: supple Respiratory: no wheezing, no rales, no rhonchi decreased breath sounds throughout, clear, no changes from previous exam Cardiovascular: no significant murmur, no rub, irregular (irregularly, normal rate) Gastrointestinal: soft, non-tender, no distention, positive bowel sounds Musculoskeletal: no edema, pulses present 5/5 strenght throughout Neurological: non-focal, normal sensation, moves all 4 limbs CN II-XII intact, chronic R hemianopsia, unchange Psychiatric: normal affect, A&O x 3 Dx/Plan (1) CVA (cerebral vascular accident) Code(s): I63.9 - CEREBRAL INFARCTION, UNSPECIFIED Status: Acute Qualifiers: CVA mechanism: thrombosis Precerebral and cerebral artery: middle cerebral artery (2) HTN (hypertension) Code(s): I10 - ESSENTIAL (PRIMARY) HYPERTENSION Status: Chronic Qualifiers: Hypertension type: essential hypertension Qualified Code(s): I10 - Essential (primary) hypertension (3) COPD (chronic obstructive pulmonary disease) Status: Chronic Qualifiers: COPD type: emphysema (4) Afib Code(s): I48.91 - UNSPECIFIED ATRIAL FIBRILLATION Status: Chronic Qualifiers: Atrial fibrillation type: longstanding persistent Qualified Code(s): I48.11 - Longstanding persistent atrial fibrillation (5) Hypothyroidism Code(s): E03.9 - HYPOTHYROIDISM, UNSPECIFIED Status: Chronic (6) CHF (congestive heart failure) Code(s): I50.9 - HEART FAILURE, UNSPECIFIED Status: Chronic (7) Breast cancer Status: Resolved Qualifiers: Patient sex: female Laterality: right (8) CAD (coronary artery disease) Code(s): I25.10 - ATHSCL HEART DISEASE OF [place] CORONARY ARTERY W/O ANG PCTRS Status: Chronic Qualifiers: Coronary Disease-Associated Artery/Lesion type: [place] artery [place] vs. transplanted heart: [place] heart (9) Rheumatoid arthritis Code(s): M06.9 - RHEUMATOID ARTHRITIS, UNSPECIFIED Status: Chronic - Plan Plan: 83yo CF with h/o CAD, previous CVA, COPD, HTN, Afib, DMII presents with slurred speech and R facial droop found to have CVA on CTA and MRI. #CVA of M2 branch of Left MCA - Slurred speech and R-sided facial droop, not tPA candidate - facial droop resolved, confusion and speech deficits resolved, no new sxs - CTA - thrombus of M2 branch of Left MCA - MRI - acute watershed distribution of L hemisphere c/w hypoperfusion or embolic event - Neurosurgery consulted from ED, no surgical intervention, medical management - Neurology consulted, cont medical management, appropriate for discharge and OP f/u, apprec recs - TSH, Fasting Lipid WNL. A1C 7.4 - PT/OT/Speech - NIH and stroke checks - Permissive HTN of <220/110 for first 48 hours of admission. Will start BP med today. - ASA, recommended plavix for dual antiplatelet due to ABCD2 score of 5, however R/B/A discussed and pt declines plavix - cont lipitor - h/o previous CVA with right hemianopsia - unchanged #Afib - rate controlled on home dig and metoprolol. VSS. No acute events on tele, still rate-controlled afib, asx. Cont to monitor on tele. - CHADSVASC score of 8, HASBLED of 5 - Dig lv 0.84 - TTE read pending - Cards consulted, Dr. Cano, recommended anticoagulation, discussed with family, decided on low-dose Eliquis, appropriate for OP f/u. No indication for HAMZAH, apprec recs and assistance - R/B/A of anticoagulation discussed with pt, including limited data on low- dose Eliquis. Verbalized understanding and wish to proceed with plan. Will f/u with PCP and specialists in [place] for further monitoring #COPD with emphysema - on 2L at home, no exacerbation - cont home O2, spiriva, breo, and albuterol nebs. Will monitor #CHF/CAD - cont home lasix and KCl, asa - no acute exacerbation - h/o stents and [place] in 2016 - TTE pending - trops neg #Hypothyroidism - cont home levothyroxine, TSH 1.4 #RA - cont home MTX q7d #GERD - cont home dexilant #DMII - newly diagnosed, A1C 7.4, no medications at this time 2/2 age and A1C goal <8 - will need OP f/u and monitoring - discussed dietary changes VTE: Eliquis Diet: HH IVF: SL Code: Full PCP: Dr. Silveira in [place], [place] Disposition/LOS: Admitted to stroke for new CVA. Consulted neurology and Cards. Medically managed. Apprec assistance. Sxs resolved. Started anticoagulation. Anticipate discharge today pending clinical course.
[2019-04-21] MEDS: Cyanocobalamin (Vitamin B-12) 1,000 MCG TAB PO SCH (09:02)
[2019-04-21] MEDS: Ubidecarenone 50 MG CAP PO SCH (09:03)
[2019-04-21] MEDS: Potassium Chloride 10 MEQ TAB PO SCH (09:03)
[2019-04-21] MEDS: Digoxin 0.125 MG TAB PO SCH (09:04)
[2019-04-21] MEDS: Ascorbic Acid 500 mg Chewable Tablet PO SCH (09:04)
[2019-04-21] MEDS: Aspirin 81 mg Enteric Coated Tablet PO SCH (09:04)
[2019-04-21] MEDS: Metoprolol Tartrate 50 MG TAB PO SCH (09:04)
[2019-04-21] MEDS: Furosemide 20 MG TAB PO SCH (09:04)
[2019-04-21] MEDS: Apixaban 2.5 MG TAB PO SCH (09:04)
[2019-04-21] MEDS: Fluticasone Propionate Nasal Spray 16 gm Bottle NASAL SCH (09:05)
--- NOTE | 2019-04-21 11:31 | PRG ---
DATE OF SERVICE: 04/21/2019 Ms. Oleary is resting quietly in bed. She is being followed for CVA, likely secondary to atrial fibrillation and embolus. She has elected for a low dose of Eliquis and will continue on aspirin. She has been seen by the neurologist. We appreciate his input. She will be discharged today. Job ID: [id number]
[2019-04-21 12:25] VITALS: BP 144/64; TEMP 97.9
--- NOTE | 2019-04-21 17:03 | EKG ---
Test Reason : Blood Pressure : / mmHG Vent. Rate : 063 BPM Atrial Rate : 300 BPM P-R Int : 000 ms QRS Dur : 084 ms QT Int : 364 ms P-R-T Axes : 000 027 -16 degrees QTc Int : 372 ms Atrial fibrillation Septal infarct , age undetermined cannot be excluded T wave abnormality, consider inferior ischemia or digitalis effect Abnormal ECG Confirmed by HEATHER RAMOS ([id number]) on 04/21/2019 5:02:45 PM Referred By: RILEY NELSON *R Confirmed By:HEATHER RAMOS
--- NOTE | 2019-04-21 21:54 | PDOC.CPN ---
- Subjective Date: 04/21/19 Time: 08:30 Interval history: No complaints. No overnight events. - Review of Systems General: denies: fever/chills, weight/appetite/sleep changes, night sweats, fatigue Respiratory: denies: cough, congestion, shortness of breath, exercise intolerance Cardiovascular: denies: chest pain, palpitation, edema, paroxysmal nocturnal dyspnea, orthopnea Gastrointestinal: denies: nausea, vomiting, diarrhea, constipation, abd pain, GI bleeding Musculoskeletal: denies: pain, tenderness, stiffness, swelling, arthritis/ arthralgias Neurological: denies: numbness, syncope, seizure, weakness - Objective Allergies/Adverse Reactions: Allergies Allergy/AdvReac Type Severity Reaction Status Date / Time exemestane Allergy Verified 04/19/19 15:13 tamoxifen Allergy Verified 04/19/19 15:13 temazepam Allergy Verified 04/19/19 15:13 tramadol Allergy Verified 04/19/19 15:13 Vital Signs & Weight: Vital Signs Temp Pulse Resp BP Pulse Ox 04/21/19 11:40 97.9 F 60 20 144/64 H 98 Weight 157 lb 6.4 oz - Physical Exam General: alert & oriented x3, appears well HEENT: mucus membranes moist Neck: supple neck Cardiac: other (IRR IRR) Lungs: clear to auscultation Neuro: grossly intact Abdomen: soft, non-tender Extremities: no cyanosis, no clubbing Skin: clear - Labs Result Diagrams: 04/20/19 03:34 04/20/19 03:34 Troponin/CKMB Troponin I Less than 0.010 ng/mL (< 0.028) 04/19/19 16:54 - Assessment/Plan Assessment/Plan: 1. Recent CVA 2. Chronic AF ECHO pending. Plan for discharge today. Patient and family has elected to take subtherapeutic Eliquis despite lack of evidence in CVA prevention and increased risk of bleed. Will f/u with in [place].
--- NOTE | 2019-04-22 20:32 | DIS ---
DATE OF ADMISSION: 04/19/2019 DATE OF DISCHARGE: 04/21/2019 RESIDENT: Chicho Bledsoe MD ADMITTING ATTENDING: Jordan Lema MD DISCHARGE ATTENDING: Osman Lee MD CONSULTS: 1. Cardiology, Dr. Cano. 2. Neurology, Dr. Foster. PROCEDURES PERFORMED: 1. Brain CT on 04/19/2019, demonstrated no acute intracranial process. 2. CTA head and neck on 04/19/2019, demonstrating a thrombus involving the proximal left M2 segment. 3. Brain MRI on 04/20/2019, demonstrating acute watershed distribution of left cerebral hemisphere. This could be related to hypoperfusion or embolic phenomenon. PRIMARY DIAGNOSIS: Cerebrovascular accident of the M2 branch of the left middle cerebral artery. SECONDARY DIAGNOSES: 1. Atrial fibrillation. 2. Chronic obstructive pulmonary disease with emphysema. 3. Congestive heart failure, coronary artery disease. 4. Hypothyroidism. 5. Rheumatoid arthritis. 6. Gastroesophageal reflux disease. 7. Type 2 diabetes, well controlled, newly diagnosed. DISCHARGE MEDICATIONS: 1. Metoprolol tartrate 25 mg p.o. b.i.d. 2. Lipitor 80 mg p.o. at bedtime. 3. Eliquis 2.5 mg p.o. b.i.d. 4. Vitamin C 1000 mg p.o. daily. 5. Vitamin B12 of 2500 mcg p.o. daily. 6. Aricept 5 mg p.o. at bedtime. 7. Breo Ellipta 1 inhalation daily. 8. Magnesium 400 mg p.o. at bedtime. 9. Albuterol sulfate 1 nebulization t.i.d. 10. Aspirin 81 mg p.o. at bedtime. 11. Dexilant 60 mg p.o. daily. 12. CoQ10 of 200 mg p.o. daily. 13. Digoxin 0.125 mg p.o. daily. 14. Flonase 1 spray in each naris daily. 15. Folic acid 0.8 mg p.o. at bedtime. 16. Lasix 20 mg p.o. b.i.d. 17. Levothyroxine 25 mcg p.o. daily. 18. Methotrexate 15 mg p.o. q.7 days. 19. Singulair 10 mg p.o. at bedtime. 20. Potassium chloride 10 mEq p.o. b.i.d. 21. Spiriva 2 inhalations daily. DISCONTINUED MEDICATIONS: 1. Metoprolol tartrate 50 mg p.o. b.i.d. 2. Atorvastatin 40 mg p.o. at bedtime. HISTORY OF PRESENT ILLNESS AND HOSPITAL COURSE: The patient is a pleasant 83-year-old female with history of hypertension, COPD, atrial fibrillation, congestive heart failure, hypothyroidism, breast cancer, [place] in 2016, previous CVA with right hemianopsia, and rheumatoid arthritis, who presented with slurred speech and generalized confusion. The patient was last seen normal at 1700 on 04/18, by her daughter. Sometime between 1700 and 1999, the patient stated that she began to feel what was "difficult to think". She spoke with her granddaughter on the phone at approximately 2000, and granddaughter noted slurred speech and difficulty with word finding. The patient went to the bed, and granddaughter checked on her the morning of admission at 0900 and noted that speech and confusion had worsened, and she also had a right-sided facial droop. EMS was called. The patient was transported to [facility]. At the time of evaluation, the speech had much improved. Right-sided facial droop had resolved. The patient denied any other focal weakness, numbness, loss of consciousness, headaches, chest pain, shortness of breath, fevers, chills, nausea, vomiting, or palpitations. 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 In the ED, she was given aspirin. CT head was negative. CTA neck demonstrated a thrombus of the left M2 branch of the MCA. Neurosurgery was consulted from the ED and recommended medical management. No surgical intervention at this time. Family Medicine Team was then called for further management. The patient was admitted to the floor. Neurology was consulted, who recommended continued medical management. The patient's fasting lipid panel and TSH were within normal limits. An A1c was 7.4. This patient is a newly diagnosed type 2 diabetic; however, risks, benefits, and alternatives of medications were discussed with the patient at length, and at this time, the patient wished to proceed with diet control and to follow up with her primary care physician for continued management. The patient initially allowed for permissive hypertension for the first 48 hours and then restarting of her home blood pressure medications. It was recommended that the patient have dual antiplatelet therapy with aspirin and Plavix with an ABCD2 score of 5; however, risks, benefits, and alternatives were discussed with the patient at length, and the patient declined any Plavix. The patient was continued on high-intensity statin. The patient was monitored with stroke checks, and symptoms continued to completely resolve with no return of new symptoms. The patient has a history of atrial fibrillation, rate controlled on digoxin and metoprolol. The patient's vital signs remained stable throughout her hospitalization; however, she did remain in atrial fibrillation, rate controlled throughout the entire stay. The patient's CHADS-VASc score is 8, and HAS-BLED score of 5. The patient had previously been on anticoagulation and had stopped approximately a year ago secondary to GI bleed. At that time, she had endoscopy which was negative. On admission, it was discussed at length with the patient and family regarding the need for anticoagulation to prevent future strokes. They initially declined and wanted to have a family discussion to speak with the specialist. Dr. Cano for Cardiology came, evaluated, and spoke with the patient and family and provided more information. The following day, the patient and the patient's family decided that they would proceed with anticoagulation with Eliquis at a "low dose". The patient was started on Eliquis 2.5 mg p.o. b.i.d. Risks, benefits, and alternatives were discussed with the patient including the little literature on efficacy of low-dose Eliquis. The patient and family voiced agreement and understanding on continuing with this medication for anticoagulation and continued to decline Plavix. The patient stated they will follow with her primary care physician and specialist in [place] for further monitoring. The patient's chronic medical conditions were continued with home medications. The patient continued to saturate well on 2 L of oxygen, which she uses at home. No acute exacerbation of her COPD or CHF. The patient did have a few episodes of sinus pause lasting less than 2 seconds. The patient's beta-norm dose was decreased. The patient remained stable, asymptomatic during events, and was safe to be discharged home. Discharge plan was discussed with the patient and family at bedside, who voiced agreement and understanding of the discharge plan. All questions were answered appropriately. Appropriate followup was discussed. DISPOSITION: Stable. DISCHARGE INSTRUCTIONS: 1. Location: Home. 2. Diet: Heart-healthy. 3. Activity: As tolerated. 4. Followup: The patient to follow up with primary care physician within 1 week of discharge. 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 Job ID: [id number]
[2019-04-25] MEDS ORDERED: Methotrexate Sodium 2.5 MG TAB PO SCH (09:00)
== END 2019-04-21 13:30 | disposition home or self-care (01) | DRG 65 ==
LOC: ERS 10:42 → OBSVTOIN 12:40 → 2SE 12:40
PROVIDERS: ADMIT Family Medicine; ATTEND Family Medicine
DX: I63.312 Cerebral infarction due to thrombosis of left middle cerebral artery (principal); I48.20 Chronic atrial fibrillation, unspecified; E03.9 Hypothyroidism, unspecified; I50.9 Heart failure, unspecified; I11.0 Hypertensive heart disease with heart failure; H53.47 Heteronymous bilateral field defects; R29.810 Facial weakness; I25.10 Atherosclerotic heart disease of native coronary artery without angina pectoris; M06.9 Rheumatoid arthritis, unspecified; J43.9 Emphysema, unspecified; K21.9 Gastro-esophageal reflux disease without esophagitis; Z90.49 Acquired absence of other specified parts of digestive tract; I69.398 Other sequelae of cerebral infarction; Z88.5 Allergy status to narcotic agent; Z88.8 Allergy status to other drugs, medicaments and biological substances; I25.2 Old myocardial infarction; Z85.3 Personal history of malignant neoplasm of breast; Z90.11 Acquired absence of right breast and nipple; Z98.42 Cataract extraction status, left eye; Z98.41 Cataract extraction status, right eye; R40.2412 Glasgow coma scale score 13-15, at arrival to emergency department; Z79.82 Long term (current) use of aspirin
CPT/HCPCS: 36415; 36416; 70450; 70496; 70498; 70551; 80053; 80061; 80162; 81003; 83036; 84443; 84484; 85025; 85610; 85730; 93005; 93010; 93306; 94640; J7611; Q9966